=== PATIENT | male | born 1995 | race Caucasian/White ===

== ENCOUNTER 2016-11-24 12:11 | Emergency (ER) | payer SELFPAY ==
[~2016-11-24] VITALS: Ht 180.3 cm; Wt 90.7 kg
[~2016-11-24 12:11] MED LIST: ALBUTEROL INHALER; MARIJUANA; SINGULAIR; SINGULAR
[2016-11-24 12:35] VITALS: BP 115/64
--- NOTE | 2016-11-24 13:15 | NUR ---
Dr. Gita jacobson patient.
[2016-11-24 13:28] VITALS: BP 115/64
--- NOTE | 2016-11-24 13:29 | NUR ---
PATIENT IS A 21 YO MALE BIB SELF FOR RIGHT HAND PAIN AWAKE AND ALERT NO SWELLING OR DEFORMITY.
== END 2016-11-24 13:29 | disposition home or self-care (01) ==
LOC: MED 12:11
DX: S60.041A Contusion of right ring finger without damage to nail, initial encounter (principal); S60.051A Contusion of right little finger without damage to nail, initial encounter; J45.909 Unspecified asthma, uncomplicated; W22.8XXA Striking against or struck by other objects, initial encounter; Y93.89 Activity, other specified; Y92.89 Other specified places as the place of occurrence of the external cause; Y99.8 Other external cause status

== ENCOUNTER 2016-12-05 19:17 | Emergency (ER) | payer SELFPAY ==
[~2016-12-05] VITALS: Ht 180.3 cm; Wt 86.2 kg
[2016-12-05 19:28] VITALS: BP 161/84
--- NOTE | 2016-12-05 19:34 | NUR ---
PT TAKEN TO BED 2
[2016-12-05] MEDS ORDERED: NACL 0.9% 1,000 ML IV ONE (19:40)
--- NOTE | 2016-12-05 19:50 | NUR ---
PATIENT PRESENTS TO ED WITH PALPITATION X 1800 TODAY; DIZZINESS SINCE THIS MORNING . PT DENIES N/V/D; SKIN IS PINK/WARM/DRY; AAOX4 WITH EVEN AND STEADY GAIT; LUNGS CLEAR BL; HR EVEN AND REGULAR; PT DENIES ANY FEVER, CP, SOB, OR COUGH AT THIS TIME; PATIENT STATES PAIN OF 7/10 AT THIS TIME; VSS; PATIENT POSITIONED FOR COMFORT; HOB ELEVATED; BEDRAILS UP X2; BED DOWN. ER MD MADE AWARE OF PT STATUS.
--- NOTE | 2016-12-05 20:06 | NUR ---
Dr. Voss evaluating patient at bedside.
[2016-12-06 00:07] VITALS: BP 129/81
== END 2016-12-06 00:09 | disposition home or self-care (01) ==
LOC: MED 19:17
DX: R00.2 Palpitations (principal); R03.0 Elevated blood-pressure reading, without diagnosis of hypertension; J45.909 Unspecified asthma, uncomplicated
CPT/HCPCS: 36415; 71010; 80053; 80305; 81002; 82553; 83880; 84484; 85025; 85379; 85610; 85730; 93005; 96360; 99285; G0482; J7030; Q0092

== ENCOUNTER 2020-12-25 07:30 | Day surgery (SDC) | payer OTHER, SELFPAY ==
[~2020-12-25] VITALS: Ht 180.3 cm; Wt 6.8 kg
[2020-12-25] MEDS ORDERED: fentaNYL citrate 0.05 MG/ML VIAL ONE (10:34)
[2020-12-25] MEDS ORDERED: MIDAZOLAM 5 MG/5 ML VIAL ONE (10:34)
[2020-12-25] MEDS ORDERED: MIDAZOLAM 2 MG/2 ML VIAL IVP ONE (11:10)
== END 2020-12-25 12:09 | disposition home or self-care (01) ==
LOC: MDS 07:30 → MMU 07:32 → MDS 12:09
PROVIDERS: ATTEND Internal Medicine Gastroenterology
DX: R68.81 Early satiety (principal); R14.0 Abdominal distension (gaseous); Z20.828 Contact with and (suspected) exposure to other viral communicable diseases
CPT/HCPCS: 36415; 43239; 86677; J2250; U0003; J3010